=== PATIENT | male | born 1995 | race Caucasian/White ===

== ENCOUNTER 2016-09-09 20:10 | Emergency (ER) | payer OTHER ==
[~2016-09-09] VITALS: Ht 182.8 cm; Wt 80.7 kg
[~2016-09-09 20:10] MED LIST: ABILIFY1 MG/ML PO; AUGMENTIN 875 M1 TAB PO; AUGMENTIN 875875 MG PO; CELEXA20 MG PO; CIPRO500 MG PO; CITALOPRAM HYDR20 MG PO; CLARITIN-D 12 H1 TAB PO; CORTISPORIN SUS10 ML OT; DARVOCET N 1001 TAB PO; FLAGYL500 MG PO; FLEXERIL10 MG PO; HYDROCODONE BIT1 T11 PO; MOTRIN400 MG PO; MOTRIN800 MG PO; Motrin,Rufen800 MG PO; NKHM PO; PENICILLIN VK500 MG PO; PENICILLIN-VK500 MG PO; PREDNISONE10 MG PO; Peridex 473 ML473 ML PO; ULTRAM50 MG PO
[2016-09-09] MEDS ORDERED: CEFADROXIL500 M1 PO (20:33)
== END 2016-09-09 20:37 | disposition home or self-care (01) ==
LOC: ED 20:10
DX: L05.91 Pilonidal cyst without abscess (principal); F17.200 Nicotine dependence, unspecified, uncomplicated

== ENCOUNTER 2018-02-09 06:40 | Emergency (ER) | payer OTHER ==
[~2018-02-09] VITALS: Ht 182.8 cm; Wt 73.9 kg
[~2018-02-09 06:40] MED LIST changes: +CEFADROXIL500 M1 PO
[2018-02-09 07:00] LABS: BASO % 0.5 % (0.0-1.0); EOS # 0.2 10*3/uL (0.0-0.4); EOS % 2.7 % (1.0-4.0); HEMATOCRIT 49.3 % (42.0-52.0); HEMOGLOBIN 17.1 g/dl (14.0-18.0); LYMPH % 24.5 % (27.0-41.0); MEAN CELL VOLUME 92.7 fl (80.0-94.0); MEAN CORPUSCULAR HGB 32.1 pg (27.0-31.0); MEAN CORPUSCULAR HGB CONC 34.7 g/dl (33.0-37.0); MEAN PLATELET VOLUME 10.8 fl (9.6-12.3); MONO # 0.5 10*3/uL (0.1-1.0); NEUT # 5.4 10*3/uL (2.3-7.9); NEUT % 66.1 % (47.0-73.0); PLATELET COUNT AUTOMATED 163 10*3/uL (130-400); RED BLOOD COUNT 5.32 10*6/uL (4.50-5.90); RED CELL DISTRI WIDTH 12.9 % (0-14.5); WHITE BLOOD COUNT 8.2 10*3/uL (4.8-10.8)
[2018-02-09 07:20] LABS: ALKALINE PHOSPHATASE 67 U/L (45-117); BUN 8 mg/dl (7-24); CHLORIDE 107 mmol/L (98-107); CREATININE 1.04 mg/dL (0.70-1.30); POTASSIUM 3.7 mmol/L (3.5-5.1); SGOT/AST 13 IU/L (3-35); SGPT/ALT 20 U/L (12-78); SODIUM 143 mmol/L (136-145); TOTAL PROTEIN 7.7 gm/dL (6.4-8.2)
[2018-02-09 08:29] LABS: BILIRUBIN NEGATIVE (NEGATIVE); BLOOD NEGATIVE (NEGATIVE); CLARITY CLEAR (CLEAR); COLOR YELLOW (YELLOW); GLUCOSE NEGATIVE (NEGATIVE); KETONE NEGATIVE (NEGATIVE); LEUKO ESTERASE NEGATIVE (NEGATIVE); NITRITE NEGATIVE (NEGATIVE); PH 6.5 (5.0-9.0); SPECIFIC GRAVITY <= 1.005 (1.005-1.030)
[2018-02-09 08:42] LABS: BACTERIA TRACE; EPITHELIAL CELLS 0-2; WBC 0-2 wbc/hpf (0-5)
[2018-02-09] MEDS ORDERED: MIRALAX POWDER17 G1 PO (08:56)
== END 2018-02-09 09:15 | disposition home or self-care (01) ==
LOC: ED 06:40
PROVIDERS: Emergency Medicine
DX: R10.13 Epigastric pain (principal); Z88.1 Allergy status to other antibiotic agents

== ENCOUNTER 2018-02-12 02:17 | Emergency (ER) | payer OTHER ==
[~2018-02-12] VITALS: Ht 182.8 cm; Wt 73.5 kg
[~2018-02-12 02:17] MED LIST changes: +MIRALAX POWDER17 G1 PO
[2018-02-12 02:39] LABS: BASO # 0.1 10*3/uL (0.0-0.1); BASO % 0.5 % (0.0-1.0); EOS # 0.3 10*3/uL (0.0-0.4); EOS % 2.6 % (1.0-4.0); HEMATOCRIT 47.3 % (42.0-52.0); HEMOGLOBIN 16.3 g/dl (14.0-18.0); MEAN CELL VOLUME 92.4 fl (80.0-94.0); MEAN CORPUSCULAR HGB 31.8 pg (27.0-31.0); MEAN CORPUSCULAR HGB CONC 34.5 g/dl (33.0-37.0); MEAN PLATELET VOLUME 10.6 fl (9.6-12.3); MONO # 0.5 10*3/uL (0.1-1.0); MONO % 5.2 % (3.0-9.0); NEUT # 5.2 10*3/uL (2.3-7.9); NEUT % 51.4 % (47.0-73.0); PLATELET COUNT AUTOMATED 174 10*3/uL (130-400); RED BLOOD COUNT 5.12 10*6/uL (4.50-5.90); RED CELL DISTRI WIDTH 12.7 % (0-14.5)
[2018-02-12 02:54] LABS: ALBUMIN 4.1 gm/dl (3.1-4.5); ALKALINE PHOSPHATASE 65 U/L (45-117); BUN 7 mg/dl (7-24); CHLORIDE 108 mmol/L (98-107); CREATININE 1.06 mg/dL (0.70-1.30); LIPASE 142 U/L (73-393); POTASSIUM 3.8 mmol/L (3.5-5.1); SGOT/AST 15 IU/L (3-35); SGPT/ALT 19 U/L (12-78); SODIUM 143 mmol/L (136-145); TOTAL PROTEIN 7.5 gm/dL (6.4-8.2)
== END 2018-02-12 04:14 | disposition home or self-care (01) ==
LOC: ED 02:17
PROVIDERS: Student in an Organized Health Care Education/Training Program
DX: R10.13 Epigastric pain (principal); Z79.899 Other long term (current) drug therapy

== ENCOUNTER 2021-04-26 22:42 | Emergency (ER) | payer BC, OTHER ==
[~2021-04-26] VITALS: Ht 180.3 cm; Wt 90.7 kg
[2021-04-27] MEDS ORDERED: HYDROCODONE-AC1 EAC1 PO (02:28)
== END 2021-04-27 03:01 | disposition home or self-care (01) ==
LOC: ED 22:42
DX: S92.352A Displaced fracture of fifth metatarsal bone, left foot, initial encounter for closed fracture (principal); X58.XXXA Exposure to other specified factors, initial encounter; Y93.89 Activity, other specified; Y92.89 Other specified places as the place of occurrence of the external cause; Y99.8 Other external cause status

== ENCOUNTER 2022-12-28 02:43 | Emergency (ER) | payer SELFPAY ==
[~2022-12-28] VITALS: Ht 180.3 cm; Wt 90.7 kg
[~2022-12-28 02:43] MED LIST changes: +HYDROCODONE-AC1 EAC1 PO
[2022-12-28 03:13] LABS: BASO # 0.1 10*3/uL (0.0-0.1); BASO % 0.4 % (0.0-1.0); EOS # 0.2 10*3/uL (0.0-0.4); EOS % 1.2 % (1.0-4.0); HEMATOCRIT 46.1 % (42.0-52.0); LYMPH # 2.8 10*3/uL (1.3-4.4); LYMPH % 20.4 % (27.0-41.0); MEAN CELL VOLUME 97.9 fl (80.0-94.0); MEAN CORPUSCULAR HGB 34.6 pg (27.0-31.0); MEAN CORPUSCULAR HGB CONC 35.4 g/dl (33.0-37.0); MEAN PLATELET VOLUME 10.3 fl (9.6-12.3); MONO # 0.7 10*3/uL (0.1-1.0); MONO % 5.1 % (3.0-9.0); NEUT # 9.8 10*3/uL (2.3-7.9); NEUT % 72.5 % (47.0-73.0); PLATELET COUNT AUTOMATED 229 10*3/uL (130-400); RED BLOOD COUNT 4.71 10*6/uL (4.50-5.90); WHITE BLOOD COUNT 13.5 10*3/uL (4.8-10.8)
[2022-12-28 03:24] LABS: ACT PARTIAL THROMBO TIME 28.3 SECONDS (20.0-32.1); INTERNATIONAL NORM RATIO 1.1 (2.0-3.5)
[2022-12-28 03:45] LABS: ALKALINE PHOSPHATASE 88 U/L (46-116); CHLORIDE 102 mmol/L (98-107); ETHYL ALCOHOL 254.4 mg/dl (<3); LIPASE 35 U/L (12-53); POTASSIUM 3.8 mmol/L (3.4-5.1); SGPT/ALT 42 U/L (10-49); TOTAL PROTEIN 6.9 gm/dL (6.0-8.0)
[2022-12-28 03:46] LABS: BUN < 5 mg/dl (9-23)
[2022-12-28 05:18] LABS: BILIRUBIN Negative (Negative); BLOOD Negative (Negative); CLARITY Clear (Clear); COLOR Yellow (Yellow); GLUCOSE Negative (Negative); KETONE Negative (Negative); LEUKO ESTERASE Negative (Negative); NITRITE Negative (Negative); PH 6.5 (4.5-8.0); SPECIFIC GRAVITY <= 1.005 (1.001-1.030); UROBILINOGEN 0.2 E.U./dl (0.0-1.0)
[2022-12-28 05:24] LABS: URINE AMPHETAMINES Negative (1000ng/ml); URINE BARBITURATES Negative (200ng/ml); URINE BENZODIAZEPINES Negative (200ng/ml); URINE CANNABINOIDS (THC) Positive (50ng/ml); URINE COCAINE Positive (300ng/ml); URINE METHADONE Negative (300ng/ml); URINE OPIATES Negative (300ng/ml); URINE PHENCYCLIDINE Negative (25ng/ml)
[2022-12-28] MEDS ORDERED: TRAMADOL HCL50 MG PO (05:38)
[2022-12-28 05:56] LABS: RBC 0-2 rbc/hpf (0-2); WBC 0-2 wbc/hpf (0-5)
== END 2022-12-28 06:04 | disposition home or self-care (01) ==
LOC: ED 02:43
PROVIDERS: Internal Medicine
DX: S22.41XA Multiple fractures of ribs, right side, initial encounter for closed fracture (principal); F32.A Depression, unspecified; Z90.89 Acquired absence of other organs; F17.200 Nicotine dependence, unspecified, uncomplicated; Z79.899 Other long term (current) drug therapy; V86.95XA Unspecified occupant of 3- or 4- wheeled all-terrain vehicle (ATV) injured in nontraffic accident, initial encounter; Y93.89 Activity, other specified; Y92.410 Unspecified street and highway as the place of occurrence of the external cause; Y99.8 Other external cause status

== ENCOUNTER 2023-05-29 13:14 | Emergency (ER) | payer OTHER ==
[~2023-05-29] VITALS: Ht 180.3 cm; Wt 98.9 kg
[~2023-05-29 13:14] MED LIST changes: +TRAMADOL HCL50 MG PO
[2023-05-29] MEDS ORDERED: PENICILLIN VK500 MG PO (14:19)
== END 2023-05-29 14:27 | disposition home or self-care (01) ==
LOC: ED 13:14
DX: K08.89 Other specified disorders of teeth and supporting structures (principal); F32.A Depression, unspecified; Z90.89 Acquired absence of other organs